=== PATIENT | female | born 1990 | race Caucasian/White ===

== ENCOUNTER 2022-07-25 09:17 | Emergency (ER) | payer OTHER ==
[2022-07-25 09:46] VITALS: BP 119/65
--- NOTE | 2022-07-25 10:16 | XRAY Report ---
PROCEDURE: Foot 3 View RT INDICATIONS: Trauma TECHNIQUE: 3 views of the foot were acquired. COMPARISON: None FINDINGS: Bones: No fractures or dislocations. No suspicious bony lesions. Tiny plantar calcaneal enthesophy te is seen. Soft tissues: No tibiotalar joint effusion. Achilles tendon appears normal. IMPRESSION: No gross acute right foot fracture or dislocation. Reviewed by: David Wilks MD on 07/25/2022 10:15 AM PDT Approved by: David Wilks MD on 07/25/2022 10:15 AM PDT Station ID: [id number]
--- NOTE | 2022-07-25 10:47 | ED Physician Documentation ---
PD HPI LOWER EXT INJURY - Stated complaint Stated Complaint: RT FOOT PX - Chief complaint Chief Complaint: Trauma Ext - History obtained from History obtained from: Patient - History of Present Illness PD HPI LOW EXT INJURY LOCATION: Right, Foot Type of injury: Crush (droped a weight on R foot this AM while exercising) Timing - onset: Today Timing - details: Abrupt onset Review of Systems Constitutional: reports: Reviewed and negative Cardiac: reports: Reviewed and negative Respiratory: reports: Reviewed and negative PD PAST MEDICAL HISTORY - Present Medications Home Medications: Ambulatory Orders Medication Instructions Recorded Confirmed No Known Home Medications 07/25/22 07/25/22 - Allergies Allergies/Adverse Reactions: Allergies Allergy/AdvReac Type Severity Reaction Status Date / Time No Known Drug Allergies Allergy Verified 07/25/22 09:46 PD ED PE NORMAL - Vitals Vital signs reviewed: Yes - General General: Alert and oriented X 3, No acute distress - Extremities Extremities: Other (Gait- walking on R heel. Bruised over lateral distal foor, no bony TTP.) - Neuro Neuro: Alert and oriented X 3, Normal speech Results - Vitals Vitals: Vital Signs - 24 hr 07/25/22 09:43 Temperature 36.4 C L Heart Rate 75 Respiratory 14 Rate Blood Pressure 119/65 O2 Saturation 99 Oxygen O2 Source Room air - Rads (name of study) R foot 3v xr Radiology: EMP read contemporaneously (normal) Departure - Departure Disposition: 01 Home, Self Care Clinical Impression: Crush injury of foot Qualifiers: Encounter type: initial encounter Laterality: right Qualified Code(s): S97.81XA - Crushing injury of right foot, initial encounter Condition: Good Record reviewed to determine appropriate education?: Yes Instructions: ED Contusion Foot Comments: Ibuprofen as needed for pain. Ice/elevate. Followup PCM/flight surgeon in 1 week if not better.
== END 2022-07-25 10:50 | disposition home or self-care (01) ==
LOC: ED 09:17
DX: S97.81XA Crushing injury of right foot, initial encounter (principal); X58.XXXA Exposure to other specified factors, initial encounter; Y93.B3 Activity, free weights
CPT/HCPCS: 99282; 99283